=== PATIENT | female | born 1985 | race Caucasian/White ===

== ENCOUNTER 2021-04-11 15:17 | Emergency (ER) | payer OTHER, SELFPAY ==
[2021-04-11 15:25] VITALS: BP 128/76; PULSE 130; RESP 20; TEMP 36.1; O2SAT 98
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
[2021-04-11] MEDS: cefTRIAXone 500 MG VIAL IM (16:17)
[2021-04-11] MEDS: LIDOCAINE HCL 1% LOCAL INJ 20 ML VIAL IM (16:18)
== END 2021-04-11 16:45 | disposition home or self-care (01) ==
PROVIDERS: Emergency Provider Nurse Practitioner
DX: N30.00 Acute cystitis without hematuria (principal)
CPT/HCPCS: 81003; 87086; 87491; 87591; 87661; 96372; 99214; G0463; J0696

== ENCOUNTER 2022-12-10 20:00 | Emergency (ER) | payer OTHER, SELFPAY ==
--- NOTE | 2022-12-10 20:02 | ED.FEMALEGU ---
HPI - Female Genitourinary General Chief complaint: Urogenital-Female Stated complaint: Urinary Problem Time Seen by Provider: 12/10/22 20:02 Source: patient and RN notes reviewed History of Present Illness HPI Narrative: Patient is a 37-year-old female presents to urgent care with complaints of UTI symptoms for 1 week reporting dysuria, urinary frequency, decreased urinary output and urinary retention. Patient denies any fever, nausea or vomiting. Patient has been taking Tylenol for her symptoms. No other acute complaints. No acute distress noted. Patient aware of the plan of care. Some parts of this dictation were generated by voice recognition software and may contain typographical and/or grammatical inaccuracies. Related Data Home Medications Medication Instructions Recorded Confirmed buprenorphine 8 mg-naloxone 2 mg 1 film sublingual DAILY 12/10/22 12/10/22 sublingual film Allergies Allergy/AdvReac Type Severity Reaction Status Date / Time nitrofurantoin Allergy Severe Anaphylactic Verified 12/10/22 20:11 Shock tramadol Allergy Unknown Unknown Verified 12/10/22 20:11 Review of Systems Review of Systems: CONSTITUTIONAL: Denies fever, chills, or sweats. EYES: Denies visual changes, redness, or discharge. ENT: Denies rhinorrhea, congestion, sore throat, or otalgia. CARDIOVASCULAR: Denies chest pain, palpitations, or edema. RESPIRATORY: Denies cough or dyspnea. GASTROINTESTINAL: Denies abdominal pain, nausea, vomiting, or diarrhea. GENITOURINARY: Reports of urinary dysuria, frequency, urgency, retention SKIN: Denies rash or itching. MUSCULOSKELETAL: Denies back pain, joint pain, or myalgia. NEUROLOGIC: Denies headache, numbness, or weakness. All other systems reviewed are negative, except as documented in HPI. PMFSH Social History Social History (Updated 04/11/21 @ 16:30 by Yessenia Jiménez, [facility], ) Substance use: former Substance use type: heroin Comments At the time of my signature, I reviewed and agree with the nursing past medical, surgical, social, and family history. There is no relevant family history pertinent to the patient complaint. Exam Narrative: GENERAL: This is a well-nourished, well-developed patient, in no apparent distress. HEAD: normocephalic, atraumatic. EYES: PERRL. Sclera clear/white. Vision is grossly intact. EARS: External ears normal NOSE: External nose normal with no obvious nasal discharge, nares without redness, no rhinorrhea. THROAT: Mucous membranes moist NECK: Neck supple GASTROINTESTINAL: Abdomen soft, moderate suprapubic tenderness, nondistended. Bowel sounds are active. SKIN: warm, intact with no suspicious lesions or rash, good texture and turgor. NEURO: awake, alert, and oriented to person, place and time. There were no obvious focal neurologic abnormalities. EXTREMITIES: No clubbing, cyanosis, or edema. BACK: Negative CVA tenderness Course Course Level of Care: Express Care Visit Vital Signs Vital signs: Vital Signs Temperature 96.7 F L 12/10/22 20:08 Pulse Rate 102 H 12/10/22 20:08 Respiratory Rate 16 12/10/22 20:08 Blood Pressure 100/77 12/10/22 20:08 Pulse Oximetry 100 12/10/22 20:08 Oxygen Delivery Room Air 12/10/22 20:08 Temperature 96.7 F L 12/10/22 20:12 Pulse Rate 102 H 12/10/22 20:12 Respiratory Rate 16 12/10/22 20:12 Blood Pressure 100/77 12/10/22 20:12 Pulse Oximetry 100 12/10/22 20:12 Oxygen Delivery Room Air 12/10/22 20:12 Reviewed MDM - Female Genitourinary MDM Narrative Medical decision making narrative: Reviewed lab results with the patient. She is aware that urinalysis does show trace leukocytes. Considering your history of positive urinary tract infection, will treat to cover infection. We will culture the urine and call if medication changes necessary. Advised patient to complete the oral antibiotic regimen as prescribed. Be sure to eat drink with the medication.
[2022-12-10 20:08] VITALS: BP 100/77; PULSE 102; RESP 16; TEMP 35.9; O2SAT 100
[2022-12-10 20:12] VITALS: BP 100/77; PULSE 102; RESP 16; TEMP 35.9; O2SAT 100
== END 2022-12-10 20:23 | disposition home or self-care (01) ==
PROVIDERS: Emergency Provider Nurse Practitioner Family
DX: N39.0 Urinary tract infection, site not specified (principal)
CPT/HCPCS: 81003; 87077; 87086; 87186; 99213; G0463

== ENCOUNTER 2023-04-14 13:27 | Emergency (ER) | payer OTHER, SELFPAY ==
[2023-04-14 13:32] VITALS: BP 113/93; PULSE 136; RESP 20; TEMP 37.3; O2SAT 97
--- NOTE | 2023-04-14 13:34 | PC.NURSE ---
Assist Dr with Pt assessment
--- NOTE | 2023-04-14 13:36 | ED.ABDPAIN ---
HPI - Abdominal Pain General Chief Complaint: Abdominal Pain Stated Complaint: unspecified/surgery complications Time Seen by Provider: 04/14/23 13:33 Source: patient and RN notes reviewed Mode of arrival: ambulatory Limitations: no limitations History of Present Illness HPI narrative: patient has a history of cervical cancer and uterine cancer. She is also having problems with her left kidney. She had a drain tube placed into her left kidney that appears to be draining urine. She is on multiple narcotics including Dilaudid and OxyContin for her cancer pain. She says is not helping with the pain. She has problems with constipation she has been taking MiraLax but that is not helping. also concerned about infection from the drain tube site in her left flank MD elicited complaint: abdominal pain Pertinent past history: constipation Onset (ago): day(s) (2) Pain Consistency: constant Location: diffuse Severity: moderate Quality: cramping Radiation: none Migration to: no migration Exacerbating factors: eating Relieving factors: nothing Associated symptoms: denies other symptoms Related Data Home Medications Medication Instructions Recorded Confirmed bupropion HCl 100 mg tablet 100 mg PO DAILY 04/14/23 04/14/23 gabapentin 600 mg tablet 900 mg PO TID 04/14/23 04/14/23 lidocaine 5 % topical ointment 1 applic topical Q4H PRN Pain 04/14/23 04/14/23 mirtazapine 15 mg tablet 15 mg PO DAILY 04/14/23 04/14/23 sennosides 8.6 mg-docusate sodium 1 tab-cap PO DAILY 04/14/23 04/14/23 50 mg tablet (Senexon-S) Allergies Allergy/AdvReac Type Severity Reaction Status Date / Time nitrofurantoin Allergy Severe Anaphylactic Verified 04/14/23 13:50 Shock tramadol Allergy Unknown Seizure Verified 04/14/23 13:50 Review of Systems Review of Systems: All systems reviewed & are unremarkable except as noted in HPI and below Constitutional: Constitutional: Denies chills and Denies fever(s) [facility] Past Medical History Medical History (Updated 04/14/23 @ 13:55 by Pa Hernandez MD) Cervical cancer Uterine cancer Social History Social History Substance use: former Substance use type: heroin Exam Const: General: no acute distress, alert and ill appearing chronically Nutritional Appearance: thin Orientation/consciousness: patient oriented x3 Limitations: no limitations Other: Female tech in room during examination. HENMT: Head: normal to inspection Ears: external ears normal Face/Nose/Sinus: Normal external nose present Face and sinus: normal facial exam Mouth: Yes moist mucous membranes Eyes: Conjunctivae: conjunctivae normal Pupils: Equal, round and reactive pupils present EOM: EOMs intact bilaterally Neck: Neck: normal visual inspection Resp: Effort & Inspection: normal respiratory effort Auscultation: clear to auscultation bilaterally Cardio: Rate: tachycardic Rhythm: regular rhythm GI: GI Palp: Yes Soft to palpation, Yes Tenderness to palpation present (GI) ( Moderate generalized) and No Rebound tenderness present Auscultation: normal bowel sounds Back/Spine/Pelvis: Cervical Spine: cervical ROM normal Thoracic/Lumbar Spine: thoraco-lumbar ROM normal Skin: General skin exam: normal color Rashes: no rashes Other: dressing he is taken down from around the drain tube in the left flank. Only a small amount of serous drainage is present. It is tender where the tube is inserted mild amount of surrounding erythema no purulent drainage could be expressed from the drain site. This area is remanded gin taped. Neuro: General: patient oriented x3, moves all extremities, no focal motor deficits and CN's II-XI intact bilaterally Speech: normal speech Gait exam (Neuro): Normal gait present Extrem: General: normal to inspection and no clubbing, cyanosis or edema Psych: Mental Status: mental status grossly normal Affect: normal affect Attitude: co
[2023-04-14 13:57] VITALS: BP 104/76; PULSE 74; RESP 20; TEMP 37.3; O2SAT 98
== END 2023-04-14 14:03 | disposition home or self-care (01) ==
PROVIDERS: Emergency Provider Emergency Medicine
DX: K59.03 Drug induced constipation (principal); C53.9 Malignant neoplasm of cervix uteri, unspecified; C55 Malignant neoplasm of uterus, part unspecified; Z79.899 Other long term (current) drug therapy
CPT/HCPCS: 99283

== ENCOUNTER 2023-04-27 16:56 | Emergency (ER) | payer OTHER, SELFPAY ==
--- NOTE | 2023-04-27 17:15 | ED.FEMALEGU ---
HPI - Female Genitourinary General Chief complaint: Urogenital-Female Stated complaint: Skin Sore Time Seen by Provider: 04/27/23 17:16 Source: patient, RN notes reviewed and old records reviewed Mode of arrival: ambulatory Limitations: no limitations History of Present Illness HPI Narrative: cat bite and thinks she has urinary tract infection Related Data Home Medications Medication Instructions Recorded Confirmed bupropion HCl 100 mg tablet 100 mg PO DAILY 04/14/23 04/14/23 gabapentin 600 mg tablet 900 mg PO TID 04/14/23 04/14/23 lidocaine 5 % topical ointment 1 applic topical Q4H PRN Pain 04/14/23 04/14/23 mirtazapine 15 mg tablet 15 mg PO DAILY 04/14/23 04/14/23 sennosides 8.6 mg-docusate sodium 1 tab-cap PO DAILY 04/14/23 04/14/23 50 mg tablet (Senexon-S) hydromorphone 4 mg tablet mg 04/27/23 oxycodone 10 mg tablet,crush mg PO 04/27/23 resistant,extended release 12 hr (OxyContin) Allergies Allergy/AdvReac Type Severity Reaction Status Date / Time nitrofurantoin Allergy Severe Anaphylactic Verified 04/14/23 13:50 Shock tramadol Allergy Unknown Seizure Verified 04/14/23 13:50 PMFSH Past Medical History Medical History (Updated 04/27/23 @ 17:19 by Sara Brown NP) Cervical cancer Uterine cancer Social History Social History Substance use: former Substance use type: heroin Discharge Plan Discharge Clinical Impression: Cat bite Qualifiers: Encounter type: initial encounter Qualified Code(s): W55.01XA - Bitten by cat, initial encounter Patient Disposition: Home, Self-Care Condition: Stable Instructions: Antibiotic Form Additional Instructions: Cleanse cat bite twice daily with liquid Dial soap watch for increasing infection--redness, swelling, drainage Take pain medicine as prescribed follow up with PCP in 7-10 days for a wound check recheck if develop fever, chills, increasing symptom Go to the ER if your symptoms become worse of if ANY new symptoms develop Antibiotic as prescribed take all doses Prescriptions: New amoxicillin-pot clavulanate 875-125 mg tablet 1 tablet PO Q12H Qty: 14 0RF No Action gabapentin 600 mg tablet 900 mg PO TID sennosides-docusate sodium [Senexon-S] 8.6-50 mg tablet 1 tab-cap PO DAILY bupropion HCl 100 mg tablet 100 mg PO DAILY mirtazapine 15 mg tablet 15 mg PO DAILY lidocaine 5 % ointment 1 applic topical Q4H PRN (Reason: Pain) lactulose 10 gram/15 mL solution 10 g PO BID 30 Days Qty: 946 0RF hydromorphone 4 mg tablet oxycodone [OxyContin] 10 mg tablet,oral only,ext.rel.12 hr PO Follow-up/Referrals: UNKNOWN,DOCTOR [Primary Care Provider] - Time of Disposition: 17:20 Quality Smith Coma Scale Eyes: Open Verbal: Oriented and Alert Motor: Follows Commands Smith Coma Total Score: 15
[2023-04-27 17:18] VITALS: BP 119/75; PULSE 135; RESP 16; TEMP 36.6; O2SAT 98
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
--- NOTE | 2023-04-27 17:37 | PC.NURSE ---
Patient up and down halls yelling, in nurses station. Continues to yell I'm dying, just give me an antibiotic .
== END 2023-04-27 17:24 | disposition home or self-care (01) ==
PROVIDERS: Emergency Provider Registered Nurse
DX: S80.812A Abrasion, left lower leg, initial encounter (principal); R30.0 Dysuria; C53.9 Malignant neoplasm of cervix uteri, unspecified; Z79.891 Long term (current) use of opiate analgesic; Z87.891 Personal history of nicotine dependence; W55.03XA Scratched by cat, initial encounter
CPT/HCPCS: 99213; G0463

== ENCOUNTER 2023-09-01 19:26 | Inpatient (IN) | payer OTHER, SELFPAY ==
--- NOTE | ~2023-09-01 | CT_ITS ---
EXAMINATION: CTA abdomen pelvis DATE: 09/01/2023 22:21 INDICATION: Abdominal pain. TECHNIQUE: Computed tomographic angiography (CTA) of the abdomen and pelvis was performed with 100 mL Omnipaque-350 intravenous contrast. Automated exposure control and iterative reconstruction techniqu e were employed. The dose-length product was 286.50 mGy-cm. Maximum intensity projection 3D-reconstru ctions of the aorta and other arteries were constructed by the technologist on a separate workstation . COMPARISON: None. FINDINGS: A calcified left lung nodule is consistent with old granulomatous disease. There is mild at electasis bilaterally. No pleural effusion. The heart size is normal. No pericardial effusion. The li yohana, gallbladder, spleen, pancreas, and adrenal glands are normal. Right kidney is normal. There is a n ill-defined 6 cm mass with central necrosis in the cervix of the uterus with involvement of the dis ishan left ureter. There is mild left hydronephrosis. There is a left-sided percutaneous nephrostomy tu be in expected position. There is a percutaneous catheter inserted into the left kidney with tip in t he distal left ureter. The catheter tip has eroded into the left external iliac artery, and there is a 16 mm pseudoaneurysm. There are no dilated loops of bowel. There is a moderate volume of stool in c olon. There is a paucity of body fat, which decreases sensitivity. There are no pathologically enlarg ed lymph nodes. There is no free intraperitoneal fluid. There is mild lumbar spondylosis. IMPRESSION: 1. 6 cm necrotic mass in the uterine cervix, consistent with primary malignancy. 2. 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 I called this result to Dr. Melton. Reviewed, dictated and finalized at location [facility]. [employer] IMPRESSION: 1. 6 cm necrotic mass in the uterine cervix, consistent with primary malignancy . 2. 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 I c alled this result to Dr. Melton.
[2023-09-01 19:24] VITALS: BP 99/68; PULSE 117; RESP 15; TEMP 36.4; O2SAT 100
--- NOTE | 2023-09-01 19:32 | ECG_ITS ---
Measurements Intervals [place] Rate: 103 P: 77 [place]: 167 QRS: 67 QRSD: 73 T: 47 QT: 318 QTc: 418 Interpretive Statements SINUS TACHYCARDIA ABNORMAL RHYTHM ECG NO PREVIOUS ECG AVAILABLE FOR COMPARISON Electronically Signed On 09-02-2023 11:10:22 ASSOCIATE SPA DIRECTOR by Ranjan Watt M.D.
[2023-09-01] MEDS: ONDANSETRON INJ 4 MG/2 ML VIAL IV PUSH ×2 (20:15→21:19)
[2023-09-01] MEDS: HYDROmorphone HCL INJ (*CRX) 1 MG/ML SYR IV PUSH ×2 (20:16→21:19)
[2023-09-01 20:30] LABS: Basophils Percent Auto 0.3 % (0.2-1.2); Eosinophils Absolute Auto 0.2 K/mm3 (0-0.3); Eosinophils Percent Auto 1.8 % (0-4.4); Lymphocytes Absolute Auto 0.72 K/mm3 (0.9-3.2); Lymphocytes Percent Auto 6.9 % (18.3-44.2); Mean Corpuscular HGB Conc 28.9 g/dl (32-36); Mean Corpuscular Hemoglobin 28.7 pg (26-34); Mean Corpuscular Volume 99.5 fl (80-100); Mean Platelet Volume 8.3 fl (7.4-10.4); Monocytes Absolute Auto 0.9 K/mm3 (0.1-0.6); Monocytes Percent Auto 9.1 % (2.6-8.5); Neutrophils Absolute Auto 8.4 K/mm3 (1.3-6.7); Neutrophils Percent Auto 80.9 % (45.5-73.1); Platelet Count Result 503 k/mm3 (150-375); Red Blood Count 2.02 M/mm3 (4.2-5.4); Red Cell Distribution Width 19.5 % (11.5-14.5); White Blood Count 10.4 K/mm3 (4.5-10.0)
[2023-09-01 20:53] LABS: Alanine Aminotransferase 9 U/L (6-35); Albumin Level 2.5 g/dL (3.5-5.1); Alkaline Phosphatase 160 U/L (38-126); Anion Gap 2 mmol/L (8-16); Aspartate Amino Transferase 18 U/L (14-36); Bilirubin,Total 0.2 mg/dL (0.2-1.3); Blood Urea Nitrogen 12 mg/dL (7-17); Calcium 8.3 mg/dL (8.4-10.2); Carbon Dioxide 30 mmol/L (22-30); Chloride 103 mmol/L (98-107); Estimated CRCL calculation 98 ml/min; Estimated Glomerular Filt Rate > 60; Glucose 86 mg/dL (65-110); Potassium 3.5 mmol/L (3.4-5.0); Sodium 135 mmol/L (137-145)
[2023-09-01 20:58] LABS: Hematocrit 20.1 % (37.0-47.0); Hemoglobin 5.8 g/dL (12.0-15.0)
[2023-09-01 21:02] LABS: Hypochromasia 1+ (NORMAL); Platelet Estimate Increased (Adequate); Schistocytes None Seen (NORMAL)
[2023-09-01 21:03] LABS: Anisocytosis 3+ (NORMAL); Macrocytosis 1+ (NORMAL)
[2023-09-01 21:13] LABS: INR 1.1; Prothrombin Time 14.7 Seconds (11.1-14.7)
[2023-09-01] MEDS: SODIUM CHLORIDE 0.9% IV 1,000 ML 999 ML IV CONT (21:13)
[2023-09-01 21:24] LABS: Partial Thromboplastin Time 22.6 SECONDS (22.3-36.8)
[2023-09-01] MEDS: fentaNYL CITRATE INJ (*CRX) 100 MCG/2 ML VIAL IV PUSH ×2 (21:44→23:36)
[2023-09-01 21:53] VITALS: BP 99/77; PULSE 117; RESP 15; O2SAT 99
[2023-09-01 22:13] LABS: Lactic Acid Reflex 0.6 mmol/L (0.7-2.0)
[2023-09-01 22:50] VITALS: BP 99/62; PULSE 119; RESP 15; TEMP 36.4; O2SAT 96
[2023-09-01 22:56] VITALS: BP 101/60; PULSE 117; RESP 15; TEMP 36.6; O2SAT 98
[2023-09-01] MEDS: SODIUM CHLORIDE 0.9% IV 250 ML 30 ML IV CONT (22:57)
[2023-09-01] MEDS: TUBING, BLOOD PLUM PUMP TUBING 1 EACH XX (22:57)
[2023-09-01 23:08] VITALS: BP 141/91; PULSE 104; RESP 15; TEMP 36.4; O2SAT 99
[2023-09-01] MEDS: LORazepam INJ (*CRX) 2 MG/ML VIAL 0.5 MG IV PUSH (23:37)
[2023-09-02] VITALS (7 sets, daily range): BP systolic 96–123; BP diastolic 55–87; PULSE 93–136; RESP 10–22; TEMP 37.1–38.3; O2SAT 95–96
--- NOTE | 2023-09-02 00:36 | ED.GENADULT ---
HPI - General Adult General Chief complaint: Vaginal Bleeding Stated complaint: VAGINAL BLEEDING, REVOKED HOSPICE Time Seen by Provider: 09/01/23 20:17 History of Present Illness HPI narrative: patient 37-year-old female who presents emergency department with chief complaint of vaginal bleeding and bleeding from percutaneous nephrostomy tube. The patient has history of endometrial uterine cancer and has been receiving hospice care patient reports that she started having vaginal bleeding and bleeding from the percutaneous nephrostomy site today and subsequently the decided that she should come to the emergency department in revoked her hospice. The patient reports he is having severe pain in her abdomen reports that has not improved by anything and not improved by oral pain medications. Related Data Home Medications Medication Instructions Recorded Confirmed bupropion HCl 100 mg tablet 100 mg PO DAILY 04/14/23 04/14/23 gabapentin 600 mg tablet 900 mg PO TID 04/14/23 04/14/23 lidocaine 5 % topical ointment 1 applic topical Q4H PRN Pain 04/14/23 04/14/23 mirtazapine 15 mg tablet 15 mg PO DAILY 04/14/23 04/14/23 sennosides 8.6 mg-docusate sodium 1 tab-cap PO DAILY 04/14/23 04/14/23 50 mg tablet (Senexon-S) hydromorphone 4 mg tablet mg 04/27/23 oxycodone 10 mg tablet,crush mg PO 04/27/23 resistant,extended release 12 hr (OxyContin) Allergies Allergy/AdvReac Type Severity Reaction Status Date / Time nitrofurantoin Allergy Severe Anaphylactic Verified 04/14/23 13:50 Shock tramadol Allergy Unknown Seizure Verified 04/14/23 13:50 Review of Systems Review of Systems: A 10 system review of systems was completed on the patient and is negative except for what is stated in the HPI. Nursing and ancillary documentation was reviewed. [facility] Past Medical History Medical History Anxiety and depression Cervical cancer Uterine cancer Social History Social History Smoking status: Former smoker Alcohol intake: former Alcohol use details: alcohol abuse Substance use: former Substance use type: heroin Gender identity (if verbalized by the patient): Female Exam Narrative: GENERAL: Ill-appearing, panic active, and in moderate acute pain distress. HEAD: Normocephalic, atraumatic. EYES: PERRLA and EOMI. ENT: Nares clear, no rhinorrhea or epistaxis. Mucous membranes moist. NECK: Supple. CHEST: Clear to auscultation. No respiratory distress. HEART: Regular rate and rhythm. No murmur heard. Normal peripheral pulses. ABDOMEN: Soft, nontender, nondistended, normal active bowel sounds. back: There is a percutaneous nephrostomy tube with blood saturating the dressing EXTREMITIES: Normal range of motion. No edema. SKIN: Warm, dry, no rash. pale NEURO: No focal deficits. Alert and oriented x3. PSYCH: Normal mood and affect. Course Vital Signs Vital signs: Vital Signs Temperature 36.4 C L 09/01/23 19:24 Pulse Rate 117 H 09/01/23 19:24 Respiratory Rate 15 09/01/23 19:24 Blood Pressure 99/68 L 09/01/23 19:24 Pulse Oximetry 100 09/01/23 19:24 Oxygen Delivery Room Air 09/01/23 19:24 Temperature 36.4 C L 09/01/23 23:08 Pulse Rate 104 H 09/01/23 23:08 Respiratory Rate 15 09/01/23 23:08 Blood Pressure 141/91 H 09/01/23 23:08 Pulse Oximetry 99 09/01/23 23:08 Oxygen Delivery Room Air 09/01/23 19:24 Medical Decision Making [facility] Narrative Medical decision making narrative: differential diagnosis includes hemorrhage from necrotic mass, vascular injury, anemia, chronic pain laboratory studies were obtained on the patient which showed a hemoglobin of 5.82 units packed red blood cells were ordered for the patient CTA was obtained of the abdomen pelvis which showed 1. 6 cm necrotic mass in the uterine cervix, consistent with taz
[2023-09-02] MEDS: HYDROmorphone HCL INJ (*CRX) 1 MG/ML SYR 4 MG IM (01:20)
--- NOTE | 2023-09-02 01:40 | PC.NURSE ---
Hospice nurse contacted by this RN @[phone]
--- NOTE | 2023-09-02 01:41 | PC.NURSE ---
Hospice Nurse to come to ED. Hospice nurse received verbal orders from Dr. Coombs for pt to be GIP, admitted to this hospital as inpatient hospice. Hospice nurse arrived at this ED @0030. Pt has rapidly declined over the past two hours.Pt is now oriented x1 and is hallucinating. Dr. Melton aware as well as hospice
[2023-09-02] MEDS: HYDROmorphone HCL INJ (*CRX) 1 MG/ML SYR 4 MG IV PUSH ×5 (02:28→19:00)
[2023-09-02] MEDS: PROCHLORPERAZINE EDISYLATE 10 MG/2 ML VIAL IV PUSH ×2 (02:29→04:22)
--- NOTE | 2023-09-02 03:15 | PC.NURSE ---
Pt is resting comfortably room. Pt has been asleep for the since 229. Awaiting start of drip order by hospice due to pts current condition of resting comfortably.
[2023-09-02] MEDS: HYDROmorphone HCL/PF (*CRX) 50 MG in SODIUM CHLORIDE 0.9% IV 95 ML IV CONT (04:07)
[2023-09-02] MEDS: ACETAMINOPHEN 650 MG SUPPOSITORY RECTAL (04:22)
[2023-09-02] MEDS: LORazepam INJ (*CRX) 2 MG/ML VIAL 1 MG IV PUSH ×2 (06:13→10:58)
--- NOTE | 2023-09-02 08:38 | PCWOUND ---
WOCN NOTE received RN notice of wound. Spoke with Day RN, No assessment needed at this time, Patient on back on hospice.
--- NOTE | 2023-09-02 11:03 | PM.IMHP ---
H&P: HPI History of Present Illness Date/Time: 09/02/23 11:03 Chief Complaint: uncontrolled abdominal pain and restlessness Narrative: This unfortunate 37-year-old female who is on hospice service for metastatic cervical cancer with hydronephrosis and percutaneous nephrostomy tube on the left presented to the emergency depart the severe generalized abdominal pain and bleeding from her nephrostomy site and vaginal canal. Her home medication was not controlling her pain. She was taking OxyContin twice daily and hydromorphone 4 mg every 4 hours as needed. CTA of abdomen pelvis revealed left nephrostomy tube eroding into the iliac artery. Hemoglobin was 5.8. She was admitted with hydromorphone continuous infusion at 2 milligrams/hour with 2 mg hourly p.r.n. her symptoms did improve initially but then worsened somewhat this morning. Earlier today her p.r.n. Ativan was scheduled at 2 mg every 4 hours IV and R Watt was added 30 mg every 8 hours IV. Since that dose adjustment her pain and agitation have been well controlled. Review of Systems Review of Systems: ROS unobtainable: Yes unobtainable due to medical condition [facility] Past Medical History Medical History Anxiety and depression Cervical cancer Uterine cancer Social History Social History Smoking status: Former smoker Alcohol intake: former Alcohol use details: alcohol abuse Substance use: former Substance use type: heroin Gender identity (if verbalized by the patient): Female Spiritual care concerns: No Meds Home Medications and Allergies Home Medications Medication Instructions Recorded Confirmed Type bupropion HCl 100 mg tablet 100 mg PO DAILY 04/14/23 04/14/23 History gabapentin 600 mg tablet 900 mg PO TID 04/14/23 04/14/23 History lactulose 10 gram/15 mL oral 10 g (15 mL) PO BID 30 days #946 mL 04/14/23 Rx solution lidocaine 5 % topical ointment 1 applic topical Q4H PRN Pain 04/14/23 04/14/23 History mirtazapine 15 mg tablet 15 mg PO DAILY 04/14/23 04/14/23 History sennosides 8.6 mg-docusate sodium 1 tab-cap PO DAILY 04/14/23 04/14/23 History 50 mg tablet (Senexon-S) amoxicillin 875 mg-potassium 1 tablet PO Q12H #14 tabs 04/27/23 Rx clavulanate 125 mg tablet hydromorphone 4 mg tablet mg 04/27/23 History oxycodone 10 mg tablet,crush mg PO 04/27/23 History resistant,extended release 12 hr (OxyContin) Allergies Allergy/AdvReac Type Severity Reaction Status Date / Time nitrofurantoin Allergy Severe Anaphylactic Verified 04/14/23 13:50 Shock tramadol Allergy Unknown Seizure Verified 04/14/23 13:50 Vital Signs Vital Signs - 24 hr 09/01/23 19:24 09/01/23 21:53 09/01/23 22:50 Temperature 97.5 F L 97.6 F Pulse Rate 117 H 117 H 119 H Respiratory Rate 15 15 15 Blood Pressure 99/68 L 99/77 L 99/62 L Pulse Oximetry 100 99 96 Oxygen Delivery Room Air 09/01/23 22:56 09/01/23 23:08 09/02/23 01:45 Temperature 97.8 F 97.5 F L Pulse Rate 117 H 104 H 135 H Respiratory Rate 15 15 15 Blood Pressure 101/60 141/91 H 123/87 Pulse Oximetry 98 99 96 Oxygen Delivery 09/02/23 04:07 09/02/23 02:26 09/02/23 06:09 Temperature 101.0 F H 99.1 F Pulse Rate 125 H Respiratory Rate 10 L 20 Blood Pressure 112/71 Pulse Oximetry 95 Oxygen Delivery 09/02/23 04:00 09/02/23 07:59 Temperature 101.0 F H Pulse Rate 93 Respiratory Rate 22 H Blood Pressure 118/84 Pulse Oximetry 95 96 Oxygen Delivery Room Air Exam Narrative: Emaciated middle-aged female was lying in her hospital bed with occasional small spontaneous movements. Neck no JVD. Chest clear to auscultation. Normal effort. Heart normal S1 and S2. Rate regular. No audible murmur. Abdomen bowel sounds hypoactive. Soft. No obvious tenderness. Extremities edema. Musculoskeletal with diffuse muscle wasting. Neurologic crania
[2023-09-02] MEDS: PHENobarbitaL sodium (*CRX) 130 MG/ML VIAL 30 MG IV PUSH ×2 (11:54→18:06)
[2023-09-02] MEDS: LORazepam INJ (*CRX) 2 MG/ML VIAL IV PUSH ×2 (15:49→20:57)
[2023-09-03] VITALS (10 sets, daily range): BP systolic 90–95; BP diastolic 54–59; PULSE 120–146; RESP 8–16; TEMP 37.8–39.5; O2SAT 95
[2023-09-03] MEDS: LORazepam INJ (*CRX) 2 MG/ML VIAL IV PUSH ×9 (00:01→23:11)
[2023-09-03] MEDS: HYDROmorphone HCL INJ (*CRX) 1 MG/ML SYR 4 MG IV PUSH ×7 (01:56→16:28)
[2023-09-03] MEDS: HYDROmorphone HCL/PF (*CRX) 50 MG in SODIUM CHLORIDE 0.9% IV 95 ML 8 MG IV CONT ×2 (02:26→14:36)
[2023-09-03] MEDS: PHENobarbitaL sodium (*CRX) 130 MG/ML VIAL 30 MG IV PUSH ×2 (03:09→10:16)
[2023-09-03] MEDS: ARTIFICIAL TEARS OPHTH SOLN 15 ML BOTTLE 1 DROP EACH EYE ×3 (10:22→16:43)
--- NOTE | 2023-09-03 16:25 | PM.IMPN ---
Progress Note: A&P Assessment and Plan (1) Palliative care encounter: Code(s): Z51.5 - Encounter for palliative care Status: Acute Assessment and Plan: Meets inpatient hospice criteria due to requiring continuous IV hydromorphone plus scheduled IV lorazepam and phenobarbital for control of symptoms. 09/03 increased hydromorphone, added prn lorazepam, increased phenobarbital. 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 Better after incr phenobarb. But still requiring prn's almost every hour. Review of Systems Review of Systems: ROS unobtainable: Yes unobtainable due to medical condition Exam Narrative: Emaciated middle-aged female was lying in her hospital bed with nondirected movements of arms and legs. Neck no JVD. Chest clear to auscultation. Normal effort. Heart normal S1 and S2. Rate regular. No audible murmur. Abdomen bowel sounds hypoactive. Soft. No obvious tenderness. Extremities edema. Musculoskeletal with diffuse muscle wasting. Neurologic cranial nerves symmetric to inspection. Psychiatric minimal response to verbal and tactile stimuli. Objective Data Vital Signs Vital Signs: Vital Signs - 24 hr 09/02/23 20:00 09/02/23 20:23 09/03/23 02:10 Temperature 98.7 F Pulse Rate 136 H Respiratory Rate 16 16 Blood Pressure 96/55 L Pulse Oximetry 95 Oxygen Delivery Room Air 09/03/23 02:26 09/03/23 02:26 09/03/23 02:35 Temperature 103.1 F H Pulse Rate 130 H 130 H 130 H Respiratory Rate 12 12 Blood Pressure Pulse Oximetry Oxygen Delivery 09/03/23 05:20 09/03/23 08:13 09/03/23 08:00 Temperature 100.0 F H Pulse Rate 120 H 120 H Respiratory Rate 10 L 10 L Blood Pressure 95/59 L 90/54 L Pulse Oximetry 95 95 Oxygen Delivery Room Air 09/03/23 14:36 09/03/23 14:36 Temperature Pulse Rate 140 H 140 H Respiratory Rate 9 L 9 L Blood Pressure Pulse Oximetry Oxygen Delivery Intake/Output Intake/Output: Intake & Output 08/31/23 09/01/23 09/02/23 09/03/23 23:59 23:59 23:59 23:59 Intake Total 1000 450 200 Balance 1000 450 200 Meds/Results Medications: Active Medications Generic Name Dose Route Start Last Admin Trade Name Freq PRN Reason Stop Dose Admin Acetaminophen 650 mg 09/02/23 02:26 09/02/23 04:22 Acetaminophen 650 Mg Suppository RECTAL 650 mg Q4H PRN Administration Fever Artificial Tears 1 drop 09/02/23 02:26 Artificial Tears Ophth Soln 15 Ml Bottle EACH EYE PRN PRN Dry Eye(s) Artificial Tears 1 drop 09/02/23 09:00 09/03/23 13:28 Artificial Tears Ophth Soln 15 Ml Bottle EACH EYE 1 drop TID SAMIA Administration Bisacodyl 10 mg 09/02/23 02:39 Bisacodyl 10 Mg Suppository RECTAL QAM PRN Constipation Glycopyrrolate 0.1 mg 09/02/23 02:41 Glycopyrrolate Inj (*Sp) 0.2 Mg/Ml Vial IV PUSH Q4H PRN Secretions Hydromorphone HCl 4 mg 09/02/23 02:38 09/03/23 14:59 Hydromorphone Hcl Inj (*Crx) 1 Mg/Ml Syr IV PUSH 4 mg Q1H PRN Administration Pain or SOB Hydromorphone HCl 50 mg/ 100 mls @ 8 mls/hr 09/02/23 02:35 09/03/23 14:36 Sodium Chloride IV CONT 4 mg/hr .[id number] SAMIA 8 mls/hr Administration 4 MG/HR Lorazepam 2 mg 09/02/23 12:00 09/03/23 15:12 Lorazepam Inj (*Crx) 2 Mg/Ml Vial IV PUSH 2 mg Q4H SAMIA Administration Phenobarbital Sodium 60 mg 09/03/23 19:00 Phenobarbital Sodium (*Crx) 130 Mg/Ml Vial IV PUSH Q8H SAMIA Prochlorperazine Edisylate 10 mg 09/02/23 02:40 09/02/23 04:22 Prochlorperazine Edisylate 10 Mg/2 Ml Vial IV PUSH 10 mg Q4H PRN Adm
[2023-09-03] MEDS: HYDROmorphone HCL INJ (*CRX) 1 MG/ML SYR 6 MG IV PUSH ×2 (17:30→20:42)
[2023-09-03] MEDS: PHENobarbitaL sodium (*CRX) 130 MG/ML VIAL 60 MG IV PUSH (18:30)
[2023-09-03] MEDS: HYDROmorphone HCL/PF (*CRX) 50 MG in SODIUM CHLORIDE 0.9% IV 95 ML 16 MG IV CONT (22:48)
--- NOTE | 2023-09-04 11:55 | PM.DDS ---
Discharge Summary Date and Time Date of : 09/04/23 Time of : 01:04 Provider Pronounced By: charli bocanegra Probable Cause of Probable Cause of : Metastatic cervical cancer complicated by anemia due to acute intra-abdominal bleeding Summary Hospital Course: Admitted to inpatient hospice service for symptom management. Medications titrated to comfort. After some terminal agitation addressed with hydromorphone adjusted to 8 mg/hr, lorazepam 2 mg iv q 4 hr, and phenobarbital for palliative sedation 60 mg iv q 8 hr, Ms. Goff peacefully. Additional Data Confirmation of as documented by pronouncing clinician: Pupillary Reflex, Palpable Pulses, Response to Stimuli, Heart Tones and Breath Sounds Name of Provider Notified: Corin Time Provider Notified: 01:33 Roll Dough Divider Notified: Yes Date [facility] Notified of : 09/04/23 Time [facility] Notified of : 01:18
== END 2023-09-04 01:04 | disposition expired | DRG 951 ==
LOC: ANHED 09-02 00:43 → ANH2MED 09-02 02:52 → ANH3MEDSUR 09-02 03:22
PROVIDERS: Admitting Provider Internal Medicine; Emergency Provider Emergency Medicine; Visit Provider Internal Medicine
DX: Z51.5 Encounter for palliative care (principal); C53.9 Malignant neoplasm of cervix uteri, unspecified; D63.0 Anemia in neoplastic disease; I72.3 Aneurysm of iliac artery; F41.8 Other specified anxiety disorders; Z87.891 Personal history of nicotine dependence
CPT/HCPCS: 36415; 36430; 74174; 80053; 83605; 85025; 85610; 85730; 86850; 86900; 86901; 86923; 93005; 96361; 96374; 96375; 96376; 99285; A9270; J0780; J1170; J2001; J2060; J2405; J2560; J3010; J7030; J7050; P9016; Q9967